=== PATIENT | male | born 1980 | race Caucasian/White ===

== ENCOUNTER 2019-01-08 20:02 | Emergency (ER) | payer BC ==
[~2019-01-08] VITALS: Ht 182.9 cm; Wt 147.4 kg
[2019-01-08] MEDS ORDERED: LIPITOR10 MG (20:17)
[2019-01-08] MEDS ORDERED: PROZAC20 MG (20:17)
[2019-01-08] MEDS ORDERED: LISINOPRIL10 MG (20:18)
[2019-01-08] MEDS ORDERED: IBU600 MG PO (20:29)
[2019-01-08] MEDS ORDERED: MEDROLDOSEPACK PO (20:29)
[2019-01-08 20:33] VITALS: BP 128/83
== END 2019-01-08 20:33 | disposition home or self-care (01) ==
LOC: M.ERS 20:02
DX: S46.811A Strain of other muscles, fascia and tendons at shoulder and upper arm level, right arm, initial encounter (principal); M75.31 Calcific tendinitis of right shoulder; Z88.0 Allergy status to penicillin; Z90.49 Acquired absence of other specified parts of digestive tract; X50.1XXA Overexertion from prolonged static or awkward postures, initial encounter; Y92.89 Other specified places as the place of occurrence of the external cause; Y93.89 Activity, other specified; Y99.8 Other external cause status

== ENCOUNTER 2019-01-19 20:11 | Emergency (ER) | payer BC ==
[~2019-01-19] VITALS: Ht 175.3 cm; Wt 120.2 kg
[~2019-01-19 20:11] MED LIST: IBU600 MG PO; LIPITOR10 MG; LISINOPRIL10 MG; MEDROLDOSEPACK PO; PROZAC20 MG
[2019-01-19] MEDS ORDERED: PREDNISONE50 MG PO (21:17)
[2019-01-19 21:46] VITALS: BP 115/88
== END 2019-01-19 21:46 | disposition home or self-care (01) ==
LOC: M.ERS 20:11
DX: J45.901 Unspecified asthma with (acute) exacerbation (principal); F41.9 Anxiety disorder, unspecified; F32.9 Major depressive disorder, single episode, unspecified; I10 Essential (primary) hypertension; E78.5 Hyperlipidemia, unspecified; Z88.0 Allergy status to penicillin; Z90.49 Acquired absence of other specified parts of digestive tract

== ENCOUNTER 2019-01-21 23:07 | Emergency (ER) | payer BC ==
[~2019-01-21] VITALS: Ht 175.3 cm; Wt 120.2 kg
[~2019-01-21 23:07] MED LIST changes: +PREDNISONE50 MG PO
[2019-01-21 23:58] VITALS: BP 131/74
== END 2019-01-22 | disposition home or self-care (01) ==
LOC: M.ERS 23:07
DX: F41.9 Anxiety disorder, unspecified (principal); R06.4 Hyperventilation; F32.9 Major depressive disorder, single episode, unspecified; I10 Essential (primary) hypertension; E78.5 Hyperlipidemia, unspecified; Z88.0 Allergy status to penicillin; Z90.49 Acquired absence of other specified parts of digestive tract

== ENCOUNTER 2019-02-15 21:33 | Emergency (ER) | payer BC ==
[~2019-02-15] VITALS: Ht 175.3 cm; Wt 117.9 kg
[2019-02-15] MEDS ORDERED: VENTOLIN HFA 1818 GM INH (21:45)
[2019-02-15 22:04] VITALS: BP 136/60
== END 2019-02-15 22:08 | disposition home or self-care (01) ==
LOC: M.ERS 21:33
DX: F41.9 Anxiety disorder, unspecified (principal); I10 Essential (primary) hypertension; Z88.0 Allergy status to penicillin; E78.5 Hyperlipidemia, unspecified; F32.9 Major depressive disorder, single episode, unspecified

== ENCOUNTER 2019-02-28 20:45 | Emergency (ER) | payer BC ==
[~2019-02-28] VITALS: Ht 175.3 cm; Wt 122.8 kg
[~2019-02-28 20:45] MED LIST changes: +VENTOLIN HFA 1818 GM INH
[2019-02-28] MEDS ORDERED: FLONASE 0.05%50 MCG NASAL (21:02)
[2019-02-28 22:42] VITALS: BP 117/64
== END 2019-02-28 22:43 | disposition home or self-care (01) ==
LOC: M.ERS 20:45
DX: S63.613A Unspecified sprain of left middle finger, initial encounter (principal); I10 Essential (primary) hypertension; E78.5 Hyperlipidemia, unspecified; F32.9 Major depressive disorder, single episode, unspecified; F41.9 Anxiety disorder, unspecified; Z88.0 Allergy status to penicillin; X58.XXXA Exposure to other specified factors, initial encounter; Y93.89 Activity, other specified; Y92.89 Other specified places as the place of occurrence of the external cause; Y99.0 Civilian activity done for income or pay

== ENCOUNTER 2020-05-10 21:33 | Emergency (ER) | payer BC ==
[~2020-05-10] VITALS: Ht 175.3 cm; Wt 145.9 kg
[~2020-05-10 21:33] MED LIST changes: +FLONASE 0.05%50 MCG NASAL
[2020-05-10] MEDS ORDERED: BACLOFEN 10MG T10 MG PO (23:19)
[2020-05-10 23:33] VITALS: BP 141/82
== END 2020-05-10 23:33 | disposition home or self-care (01) ==
LOC: M.ERS 21:33
DX: M62.838 Other muscle spasm (principal); F41.9 Anxiety disorder, unspecified; F32.9 Major depressive disorder, single episode, unspecified; E78.5 Hyperlipidemia, unspecified; I10 Essential (primary) hypertension; Z88.0 Allergy status to penicillin